=== PATIENT | male | born 1995 | race Caucasian/White ===

== ENCOUNTER 2021-12-07 10:53 | Emergency (ER) | payer MEDICAID ==
[~2021-12-07] VITALS: Ht 175.3 cm; Wt 86.2 kg
[2021-12-07 10:58] VITALS: BP 140/86
--- NOTE | 2021-12-07 11:00 | NUR ---
[id number], from his car, homeless, etoh. on room air, breathing evenly and unlabored. Kept comfortable, will continue to monitor accordingly. Sitter at bedside.
--- NOTE | 2021-12-07 11:02 | NUR ---
DR TOURE AT BEDSIDE FOR EVAL
--- NOTE | 2021-12-07 13:21 | NUR ---
Patient eloped from facility. ER MD notified.
== END 2021-12-07 13:21 | disposition left against medical advice (07) ==
LOC: ER 10:56
DX: F10.10 Alcohol abuse, uncomplicated (principal); Y90.9 Presence of alcohol in blood, level not specified

== ENCOUNTER 2021-12-07 13:50 | Emergency (ER) | payer MEDICAID ==
[~2021-12-07] VITALS: Ht 175.3 cm; Wt 86.2 kg
[2021-12-07 13:52] VITALS: BP 135/81
[2021-12-07] MEDS ORDERED: LIDOCAINE VISCOUS 2% UD 15 ML UDC MM ONE (14:30)
[2021-12-07] MEDS ORDERED: FAMOTIDINE (20 MG) 20 MG TABLET PO ONE (14:30)
[2021-12-07] MEDS ORDERED: MAG HYDROX/AL HYDROX/SIMETH 30 ML UDC PO ONE (14:30)
[2021-12-07] MEDS ORDERED: LIDOCAINE VISCOUS 2% UD 15 ML UDC ONE (14:31)
[2021-12-07] MEDS ORDERED: FAMOTIDINE (20 MG) 20 MG TABLET ONE (14:31)
[2021-12-07] MEDS ORDERED: MAG HYDROX/AL HYDROX/SIMETH 30 ML UDC ONE (14:31)
--- NOTE | 2021-12-07 15:30 | NUR ---
NAOMI COOPER AT BEDSIDE FOR EVAL.
--- NOTE | 2021-12-07 15:55 | NUR ---
SS Consult requested for alcohol abuse & homelessness. The pt. is a 26-year-old male who is admitted to [facility] ED for alcohol abuse. The pt. has been here earlier today and departed. SW met with pt. at bedside and completed assessment. Pt. stated he drinks 1/5 pint of liquor daily. The pt. appears unkempt is A&O X4 and makes avoidant eye contact. Pt.'s has depressed mood & flat affect. The pt. states he has difficulty concentrating and feels weak and has the "jitters" because he is currently detoxing. Patient tested positive for alcohol use. airport utility worker provided support with motivational interviewing, education regarding alcohol dependence, brief intervention and offered referral to treatment. Pt. stated he came to the hospital because he is looking for a detox center. SW provided pt. with addiction resources, and he accepted them. Pt. denies any use of drugs. SW explored pt.'s living situation. Pt. states he was staying with a friend in [place] but is not able to return there. Per pt. he drove here but ran out of gas and called the paramedics who jn him to the hospital. ALLISON explored pt.'s mental health Hx. Pt. states he been diagnosed with severe anxiety & PTSD. Pt. denies current SI/HI and denies hallucinations. Pt. states he is independent with his of ADL's at this time. SW explored pt.'s support system. Pt. stated he has no one. Plan: SW called [facility] Substance Abuse Helpline([facility]) [phone] and pt. completed intake with them. [facility] stated pt. meets requirements for Detox level of care and provided the following detox resources that take Medi-Luis Carlos: [facility] [phone] [facility] [phone] [facility] [phone] [facility] [phone] [facility] [phone] SW and patient called all of the above stated detox agencies and they have no beds today and placed him on a waiting list. Pt. provided his cell phone number [phone] and they will call him when a bed becomes available and instructed him also to call daily to check bed availability. Pt. was notified that he can call his [employer] at [phone] Pt. expressed understanding. ALLISON also contacted the following agencies who also had no beds available: [facility] [phone] [facility] [phone] [facility] Drug and Alcohol Program :[facility] [phone] Alcohol Drug Action Program/[facility] Family Services [place] [phone] Pt. was provided with mental health, addiction and homeless resources and pt. accepted them. SW offered TAP card and direction via bus to his vehicle and pt. refused. ALLISON discussed case with MD Abrams. ADDICTION RESOURCES For Drugs and Alcohol [facility] sober living Referrals For Rehabilitation once sober Address:[address] [place] [address] [facility] Rehabilitation Program Address: [address] [place] [address] [facility] Substance Abuse Helpline(SAS)[facility] Outpatient treatment, residential treatment, recovery support for youth and adults [facility] www.actionfamilycounselingAssetAvenue [facility] Teen programs for drug/alcohol education and support [facility] [place]. Program for adults, sliding scale provides support and education [facility] (Ojhn) www.iPeenSkimblation.org [place]; Detox/residential treatment programs; transition to sober living [facility] www.cri-help.org [place]; Outpatient and residential treatment programs; transition to sober living I-[facility] Inter Agency Drug Abuse Recovery Jorge Luis Riddle; Outpatient education and supportive programs for teens and adults [place] [facility] www.oasiswomensrecovery.org [place]; Residential treatment and work program for females only [place] www.Avidbotswinchester.org [place]: Outpatient/residential treatment program for teens and young adults [facility] www.multicare health.org [place] Detox, inpatient, outpatient for adults and youth [facility]'s [place], [facility]. [place]; Outpatient programs and referrals to community residential programs. Alcoholics Anonymous -sfv information and meeting and schedules www.aa-intergroup.org Ou-Zgdo-Bkbvhxv https://al-anon.org/ Orient support groups for family of alcoholics. Marijuana Anonymous www.Ensaistrict6.org -sfv listing of meetings Narcotics Anonymous www.na.org SOBER LIVING RESOURCES [facility] www.soberhousing.net A non-profit agency that provides resources to recovery and sober living homes throughout [place], [facility] Men's Sober Living Homes: A Work in Progress, [facility] Recovery Advocates, [facility] Women's Sober Living Homes: [facility] x [phone] My [place], [place] [facility] Coe Sober Living Homes: [facility]--Outpatient [facility] [address] [facility] [place] [address] (Specializes in in-depth psychotherapy for emotional distress: anxiety, depression, interpersonal conflicts, life transitions, childhood abuse) [facility] [address] [place] [address] (Assist with solving problem marital difficulties, separation & divorce, aging parents, & grief, chronic & terminal illness) [facility] [address] [place] [address] (Deal with loss & grief, anxiety, marital difficulties) Homebound/Mental Health Services [address] [facility], [address] [place] [address] (Provide in-home mental services to people who are incapable of leaving their homes) Organization for Needs of the Elderly Senior Service/Resource Center [address] [facility] [place] [address] [facility] [address] [place], [place] [phone] Mental Health Services Mary Yuliet Alden [address] [place] [address] Services: Outpatient therapy for children, teens, young adults, adults, older adults, and families; Psychiatric services, medication support Psychiatric Outpatient Services [facility] Partial Hospitalization and Intensive Outpatient Program (Managed Care and [place] Only)[address]54 [facility] [phone] [facility] Partial Hospitalization and Outpatient [id number] [facility] [address] [place], [place] [phone] [facility] Partial Hospitalization and Outpatient Iffqzgf1316 [place], [place] [phone] [facility] [place] [id number] [facility] [address] [place], [place] [phone] [facility] Partial Hospitalization and Outpatient Pieatdq72956 [place], [phone] Crisis and Hotline Telephone Numbers 24-Hour service unless stated [place] Crisis Hotlines: [facility]. Mental Health/Crisis Line........[phone] Suicide Prevention Center (24 Hours).......[phone] Suicide Prevention Crisis Center.......[phone] (24 Hours) Assaults Against Women Hotline.........258.763.2082 (24 Hours -- [facility]) Women and Children Crisis Usp...........[phone] (24 Hours) Child Abuse Hotline............876.115.5987 ([facility] [place] of Childrens Services [facility] Treatment Center (24 Hours)..........[phone] Alcoholics Anonymous (24 Hours)..........[phone] Cocaine Anonymous (24 Hours)............[phone] Narcotics Anonymous (24 Hours)..........[phone] Jayna Bonner [facility] [address] [place] [address] Year-round shelters: [place] [address] [place] [address] ; [facility] [place] [address] [place] [address]; [place] [facility] [address] [facility]. [facility] [address] Hygiene: [place] [facility]: [address] [place] ; [place] [facility] [address] [facility] ; [facility] 8863 [facility] . Food Resources: [place] [facility] at [facility]- 57[address] [facility]; Meet Each Need with Dignity ([facility]) [address] [facility] HospitalNatalia Haskell; [facility] Food Pantry 4344 [facility]; [facility] 8103 [facility]. Mental Health resources provided: [facility] [address] [place] [address] ; [facility] Health [place], Inc[facility] [address] [facility] [address], [place] [address] ; [facility] Urgent Care Center [address] [place] [address] ; [facility] [place], [place] [address] Healthcare Clinics: [facility] [address] [facility], [address] [place]. [place] ; [facility] [address] [facility] [address] [place] [address]; [facility] [address] [place] [address] [phone]) [phone] Counseling--Outpatient [facility] [address] [facility], [place] [address] (Specializes in in-depth psychotherapy for emotional distress: anxiety, depression, interpersonal conflicts, life transitions, childhood abuse) [facility] [address] [place] [address] (Assist with solving problem marital difficulties, separation & divorce, aging parents, & grief, chronic & terminal illness) [facility] [address] [place] [address] (Deal with loss & grief, anxiety, marital difficulties) Homebound/Mental Health Services 30590 [facility], [address] [place] [address] (Provide in-home mental services to people who are incapable of leaving their homes) Organization for Needs of the Elderly Senior Service/Resource Center [address] [place] [address] [facility] [address] [facility] [place] [place] [address] PSYCHIATRIC OUTPATIENT SERVICES [facility] Partial Hospitalization and Intensive Outpatient Program (Managed Care and [place] Only)[address]26 [facility] Hospital[facility]essica. [facility] [phone] [facility] Partial Hospitalization and Outpatient [id number] [place] [facility]. [address] [place], [place] [phone] [facility] Health Center Sah29612 [facility]. [address] [place], [place] [phone] [facility] Partial Hospitalization and Outpatient [id number] [place], [phone] Substance Abuse resources provided included: [facility] Substance Abuse Self-Helpline ([facility]) ; [facility]RI -HELP [address] [facility]. [place] 9[address] ; [facility] [place] [address] [facility] [address] ; [facility] Rehabilitation Program [address] [place] [facility] [address] ; [facility] 400 [facility] [phone] ; [facility] 4940 [facility] [phone] ; [facility] 909 [facility] [phone] ; [facility] Substance Abuse Helpline([facility])-[facility] ; [facility] ; [facility] [place]; [facility] [place]; [facility] [place]; I-[facility] Inter Agency Drug Abuse Recovery Jorge Luis Riddle; [place] [facility] [place]; [place]; [facility] [place], Inc. [place]; Alcoholics Anonymous -SFV; Qa-Pbmr-Byxnfif ; Marijuana Anonymous -SFV; Narcotics Anonymous www.na.org;
--- NOTE | 2021-12-07 16:06 | NUR ---
Patient discharged to home in stable condition. Written and verbal after care instructions given. Patient verbalizes understanding of instruction.
== END 2021-12-07 16:07 | disposition home or self-care (01) ==
LOC: ER 13:50
DX: F10.10 Alcohol abuse, uncomplicated (principal); Y90.9 Presence of alcohol in blood, level not specified